=== PATIENT | female | born 1950 | race Hispanic/Latino ===

== ENCOUNTER 2016-12-07 08:07 | Outpatient (CLI) | payer MEDICARE, OTHER ==
--- NOTE | 2016-12-07 09:46 | Mammography Report ---
RIGHT DIGITAL DIAGNOSTIC MAMMOGRAM: 12/07/16 08:07:00 CLINICAL: For clip placement immediately status post ultrasound biopsy. COMPARISON:Previous mammogram from [facility] FINDINGS: A second biopsy clip is now identified more anterior to the previously placed clip. IMPRESSION: Concordant clip placement status post ultrasound biopsy. BI-RADS CATEGORY: 4--Suspicious Pathology pending.
--- NOTE | 2016-12-07 09:52 | Ultrasound Report ---
VACUUM ASSISTED ULTRASOUND GUIDED NEEDLE CORE BIOPSY WITH CLIP PLACEMENT RIGHT BREAST: 12/07/16 08:07:00 CLINICAL: Complex cyst of the right breast. It was recently aspirated with papillary neoplasm suggested as a possibility by the cytology. COMPARISON :Recent images from [facility] FINDINGS: The procedure was explained to the patient and informed consent was obtained. Ultrasound demonstrated an oval cyst at 9 o'clock 6 cm from the nipple. The wall is relatively thin except for focal thickening with a 7 mm nodule in the wall. The skin was prepped with Betadine and anesthetized with 1% lidocaine. Vacuum-assisted needle core biopsy was performed through a small dermatotomy using ultrasound guidance, 2% lidocaine with epinephrine for deep anesthesia and a 13-gauge Mammotome Elite biopsy probe. Multiple cores were obtained and placed in formalin. The cyst showed complete collapse with the aspiration of bloody fluid. A hydro-bre clip was deployed within the cyst and a post biopsy mammogram demonstrated the presence of 2 clips at the site. Hemostasis was achieved with minimal pressure and a sterile dressing was applied. The patient tolerated the procedure well and there were no apparent complications. The patient left the department in good condition and was given instructions for wound care and follow up. IMPRESSION: Uncomplicated vacuum-assisted ultrasound core biopsy and clip placement right breast.
== END 2016-12-07 08:08 | disposition home or self-care (01) ==
LOC: SPVWC 08:07
PROVIDERS: ATTEND Surgery
DX: N60.01 Solitary cyst of right breast (principal); N63.10 Unspecified lump in the right breast, unspecified quadrant; R92.8 Other abnormal and inconclusive findings on diagnostic imaging of breast
CPT/HCPCS: 19083; 88305; A4648; G0206; 88307

== ENCOUNTER 2017-01-12 09:59 | Outpatient (CLI) | payer MEDICARE, OTHER ==
--- NOTE | 2017-01-12 14:25 | Magnetic Resonance Report ---
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 COMPARISON:12/07/16 right mammogram. Her recent left mammogram is not available.. TECHNIQUE: Axial 1.0-mm T1 without, axial high resolution 2.0-mm T2 and axial 1.0-mm dynamic Vibrant high-resolution postcontrast T1 fat saturation sequences on a 1.5 Gertrudis magnet. The examination was performed with an 8 channel dedicated [place] breast coil. Post processing with CAD and subtraction was performed on an [employer] workstation. 16.0 cc of Multihance was injected without incident for the contrast portion of the exam. Consent was obtained prior to the administration of the contrast. FINDINGS: Right: Minimal background parenchymal enhancement. No mass or suspicious enhancement. A postop seroma is located posterior slightly lateral to the nipple in the axial plane and at the nipple line in the sagittal plane measures 8.8 cm AP dimension by 2.5 cm transverse dimension by 4.9 cm craniocaudal dimension. Benign enhancement at the margin of the seroma. No suspicious enhancement at the margins of the seroma. No suspicious lymph nodes. A few small right axillary lymph nodes with benign morphology. Left: Minimal background parenchymal enhancement. No mass or suspicious enhancement. No suspicious lymph nodes. IMPRESSION: A 9 cm right postop seroma and no suspicious finding in the right breast. Negative left breast. No suspicious lymph nodes. RIGHT BI-RADS 6 -- Known Cancer LEFT BI-RADS 1 -- Negative
== END 2017-01-12 10:00 | disposition home or self-care (01) ==
LOC: SPVIMAG 09:59
PROVIDERS: ATTEND Surgery
DX: C50.511 Malignant neoplasm of lower-outer quadrant of right female breast (principal); N60.01 Solitary cyst of right breast; N64.89 Other specified disorders of breast
CPT/HCPCS: A9577; C8908; 77059

== ENCOUNTER 2017-01-19 05:47 | Day surgery (SDC) | payer MEDICARE, OTHER ==
[~2017-01-19 05:47] MED LIST: NACL ONE
[2017-01-19] MEDS ORDERED: PEPCID PO NR (06:00)
[2017-01-19] MEDS ORDERED: VERSED IV NR (06:00)
[2017-01-19] MEDS ORDERED: NACL 0.9% 1000 ML 1,000 ML IV SCH (06:00)
--- NOTE | 2017-01-19 06:32 | Anesthesia Consultation ---
Anesthesia Consult and Med Hx Date of service: 01/19/17 - Airway Anesthetic Teeth Evaluation: Good ROM Head & Neck: Adequate Mental/Hyoid Distance: Adequate Mallampati Class: Class II Intubation Access Assessment: Probably Good - Pulmonary Exam CTA: Yes - Cardiac Exam Cardiac Exam: RRR - Pre-Operative Health Status ASA Pre-Surgery Classification: ASA2 Proposed Anesthetic Plan: General - Pulmonary Hx Smoking: Yes (quit 46 years ago, heavy smoker 3years) - Cardiovascular System Hx Hypertension: Yes (3years) - Central Nervous System Hx Psychiatric Problems: No - Other Systems Hx Alcohol Use: Yes (occas) Hx Substance Use: No Hx Cancer: Yes - Additional Comments Anesthesia Medical History Comments: scoliosis
--- NOTE | 2017-01-19 06:33 | Anesthesia Day of Surgery ---
Anesthesia Day of Surgery - Day of Surgery Patient Examined: Yes Patient H&P Reviewed: Yes Patient is NPO: Yes
[2017-01-19] MEDS ORDERED: PERCOCET 5/325 PO PRN (06:34)
[2017-01-19] MEDS ORDERED: ZOFRAN IV PRN (06:34)
[2017-01-19] MEDS ORDERED: DILAUDID IV PRN (06:34)
[2017-01-19] MEDS ORDERED: NACL BACTERIOSTATIC INFILTRATI ONE (06:39)
[2017-01-19 07:00] LABS: Basophils % (Auto) 1.1 % (0.0-1.8); Eosinophils % (Auto) 6.4 % (0.0-4.3); Hematocrit 43.3 % (30.3-42.9); Hemoglobin 14.5 gm/dl (10.1-14.3); Mean Corpuscular HGB Conc 33 % (30-34); Mean Corpuscular Hemoglobin 30 pg (28-32); Mean Corpuscular Volume 91 fl (79-97); Platelet Count 331 K/mm3 (140-440); Red Blood Count 4.75 M/mm3 (3.65-5.03); Red Cell Distribution Width 13.7 % (13.2-15.2); White Blood Count 7.7 K/mm3 (4.5-11.0)
[2017-01-19] MEDS ORDERED: XYLOCAINE 1% 20 mL ONE (07:13)
[2017-01-19] MEDS ORDERED: MARCAINE 0.25% INFILTRATI ONE ×2 (07:14→08:27)
[2017-01-19] MEDS ORDERED: DIPRIVAN 10 MG/ML IV ONE (07:33)
[2017-01-19] MEDS ORDERED: DILAUDID ONE (07:34)
[2017-01-19] MEDS ORDERED: ANCEF/STERILE WATER 2 GM/20 ML IV NR (08:00)
[2017-01-19] MEDS ORDERED: XYLOCAINE 1% 20 mL INFILTRATI ONE (08:27)
[2017-01-19] MEDS ORDERED: XYLOCAINE MPF 2% ONE (08:31)
[2017-01-19] MEDS ORDERED: DECADRON ONE (08:32)
[2017-01-19] MEDS ORDERED: TORADOL ONE (08:38)
[2017-01-19] MEDS ORDERED: ZOFRAN ONE (08:38)
[2017-01-19] MEDS ORDERED: NACL 0.9% IR ONE (09:05)
[2017-01-19] MEDS ORDERED: ANTIBIOTIC OINT TP ONE (09:11)
[2017-01-19] MEDS ORDERED: WATER FOR IRRIG STERILE IR ONE (09:15)
[2017-01-19] MEDS ORDERED: ePHEDrine SULFATE ONE (09:41)
--- NOTE | 2017-01-19 10:14 | Operative Report ---
Operative Report Operative Report: Date of Service: January 20, 2017 Preoperative diagnosis: Right breast cancer of the upper outer quadrant Postoperative diagnosis: Same Procedure: Right breast margin revision and temporary radiation balloon placement Surgeon: Nichole Maya MD Cashier Associate: Inna Yang MD Anesthesia: General Findings: Posterior and cephalad margin revision; temporary radiation balloon placement of 35 cc water Complications: None EBL: Minimal Disposition:PACU in good condition Indications for operative procedure:This is a 66 year old lady with newly diagnosed right breast cancer of the upper outer quadrant, [id number] ER positive. She recently underwent a right breast excisional biopsy for recurrent breast cyst with cytology findings of a papillary neoplasm. Final pathology findings of papillary lesion of 17 mm with associated low grade DCIS and posterior margin less than 1 mm from cancer and cephalad margin 1 mm from cancer. Recommendations were to proceed with margin revision as well as temporary radiation balloon placement for partial breast radiation. Patient wished to proceed with above procedure. Procedure in detail: The patient was taken to the operating room and was placed supine. Gen. anesthesia was administered. The right breast was prepped and draped in the normal sterile operative fashion. Timeout was performed. Prior breast incision was identified of the left breast at the 9 o'clock position. Skin incision was made using a 15 blade knife at prior breast incision that was opened. The subcutaneous tissues were opened as well. Seroma was appropriately drained. Then proceeded with margin revision of both cephalad and posterior margins using the bovie cautery and appropriately marked and sent to pathology. Ultrasound was used to ensure adequate skin spacing for temporary radiation balloon placement. A lateral skin incision was then made inferior to the prior breast incision with the 15 blade knife and trocar with sheath for radiation balloon placement was then inserted carefully. The trocar was removed and the radiation catheter balloon was then inserted through the sheath and sheet appropriately removed. The balloon was injected with 35 mL of water with appropriate placement. The balloon was then deflated. The deep breast tissues were approximated and closed using interrupted 3-0 Vicryl and the skin brought together and closed using a running 4-0 Monocryl. The balloon was inflated under ultrasound guidance with good skin margin and 35 mL of water injected. The breast was then appropriately dressed and patient was awakened from anesthesia without complication and transported to PACU in good condition.
[2017-01-19 10:15] VITALS: BP 136/85
--- NOTE | 2017-01-19 11:12 | Short Stay Summary ---
Short Stay Documentation Date of service: 01/19/17 - History H&P: obtained from office - Allergies and Medications Current Medications: Allergies No Known Allergies Allergy (Verified 01/12/17 14:37) Home Medications Medication Instructions Recorded Confirmed Last Taken Type Estradiol/Norethindrone Acet 1 tab PO Q72HR 12/23/16 01/19/17 01/17/17 History [Estradiol-Noreth 1-0.5 mg Tab] Glucosamin,[id number] 1 each PO DAILY 12/23/16 01/19/17 01/12/17 History [Glucoten Caplet] Naproxen [Naproxen] 500 mg PO DAILY 12/23/16 01/19/17 01/14/17 History Olmesartan (Nf) [Benicar (Nf)] 20 mg PO QDAY 12/23/16 01/19/17 01/18/17 History HYDROcodone/APAP 5-325 [Pride 1 each PO Q6HR PRN #30 tablet 12/29/16 01/12/17 Unknown Rx 5/325] Cephalexin [Keflex] 500 mg PO Q12HR #28 cap 01/19/17 Unknown Rx HYDROcodone/APAP 5-325 [Pride 1 each PO Q6HR PRN #30 tablet 01/19/17 Unknown Rx 5/325] Active Medications Cefazolin Sodium (Ancef/Sterile Water 2 Gm/20 Ml) 2 gm IV PREOP NR Stop: 01/19/17 23:59 Famotidine (Pepcid) 20 mg PO PREOP NR Stop: 01/19/17 23:59 Last Admin: 01/19/17 06:56 Dose: 20 mg Hydromorphone HCl (Dilaudid) 0.5 mg IV Q10MIN PRN PRN Reason: Pain , Severe (7-10) Stop: 01/19/17 18:00 Sodium Chloride (Nacl 0.9% 1000 Ml) 1,000 mls @ 100 mls/hr IV DIRECT ASHLEY Last Admin: 01/19/17 06:45 Dose: 100 mls/hr Midazolam HCl (Versed) 2 mg IV PREOP NR Stop: 01/19/17 23:59 Last Admin: 01/19/17 07:06 Dose: 2 mg Ondansetron HCl (Zofran) 4 mg IV ONCE PRN PRN Reason: Nausea And Vomiting Stop: 01/19/17 18:00 Oxycodone/Acetaminophen (Percocet 5/325) 1 tab PO ONCE PRN PRN Reason: Pain, Moderate (4-6) Stop: 01/19/17 18:00 - Brief post op/procedure progress note Date of procedure: 01/19/17 Pre-op diagnosis: Right breast cancer of the upper outer quadrant Post-op diagnosis: same Procedure: Right breast margin revision and temporary radiation balloon placement Anesthesia: GETA Findings: right breast margin revision; radiation balloon placement of 35 cc wate Surgeon: CHRISSY NGUYEN Plate Printer: TAMICA MIN Estimated blood loss: minimal Pathology: list (cephalad and posterior margin revision) Specimen disposition: to lab Condition: stable - Disposition Condition at discharge: Good Disposition: DC- TO HOME OR SELFCARE Short Stay Discharge Plan Activity: other (no heavy lifting) Diet: regular Wound: other (keep clovered; no showering or baths) Follow up with: CHRISSY NGUYEN MD [Staff Physician] - 01/24/17 11:00 am Prescriptions: Cephalexin [Keflex] 500 mg PO Q12HR #28 cap HYDROcodone/APAP 5-325 [Pride 5/325] 1 each PO Q6HR PRN #30 tablet PRN Reason: Pain
--- NOTE | 2017-01-19 17:51 | Post Anesthesia Evaluation ---
- Post Anesthesia Evaluation Patient Participated: Yes Airway Patent: Yes Stable Respiratory Function: Yes Nausea/Vomiting: No Temp > 96.8F: Yes Pain Manageable: Yes Adequeate Hydration: Yes Anesthesia Complications: No
== END 2017-01-19 11:45 | disposition home or self-care (01) ==
LOC: OR 05:47
PROVIDERS: ATTEND Surgery
DX: D05.11 Intraductal carcinoma in situ of right breast (principal); N64.1 Fat necrosis of breast; Z17.0 Estrogen receptor positive status [ER+]; I10 Essential (primary) hypertension; M13.88 Other specified arthritis, other site; Z79.899 Other long term (current) drug therapy; Z96.653 Presence of artificial knee joint, bilateral; Z96.649 Presence of unspecified artificial hip joint; Z80.1 Family history of malignant neoplasm of trachea, bronchus and lung; Z87.891 Personal history of nicotine dependence; Z85.3 Personal history of malignant neoplasm of breast
CPT/HCPCS: 19298; 19380; 36415; 85025; 88307; J0690; J1100; J1170; J1885; J2250; J2405; J2704; J7030

== ENCOUNTER 2021-01-19 12:55 | Outpatient (CLI) | payer MEDICARE, OTHER ==
--- NOTE | 2021-01-19 18:04 | Mammography Report ---
DIGITAL SCREENING MAMMOGRAM WITH TOMOSYNTHESIS WITH CAD, 01/19/2021 CLINICAL INFORMATION / INDICATION: Routine Screening Mammography. TECHNIQUE: Digital bilateral 2D and 3D mammography with tomosynthesis was obtained in the craniocaud al and mediolateral oblique projections. Computer-Aided Detection (CAD) analysis was used for interp retation of this study. COMPARISON: 11/27/2019, 11/23/2018 FINDINGS: Breast Density: The breasts are heterogeneously dense, which may obscure small masses. No dominant mass, suspicious calcifications, or architectural distortion in either breast. Scarring is again noted along the upper outer right breast. No other significant interval changes. IMPRESSION: No mammographic evidence of malignancy. Follow up recommendation: Routine yearly BI-RADS Category 2: Benign. A "normal" or negative report should not discourage follow up or biopsy of a clinically significant f inding. A written summary of these findings will be mailed to the patient. The patient will be entered into a mammography reporting system which will generate a reminder letter for the patient's next appointmen t at the appropriate interval. The [employer] recommends yearly mammograms starting at age 40 and continuing as l jonatan as a woman is in good health. Breast MRI is recommended for women with an approximate 20-25% or greater lifetime risk of breast cancer, including women with a strong family history of breast or ova liza cancer or who have been treated for Hodgkin's disease. Signer Name: Tylor Lyles MD Signed: 01/19/2021 6:00 PM Workstation Name: [id number]
== END 2021-01-19 12:56 | disposition home or self-care (01) ==
LOC: SPVWC 12:55
PROVIDERS: ATTEND Surgery
DX: Z12.31 Encounter for screening mammogram for malignant neoplasm of breast (principal); N64.89 Other specified disorders of breast
CPT/HCPCS: 77063; 77067